=== PATIENT | female | born 1950 | race Caucasian/White ===

== ENCOUNTER 2019-07-24 22:46 | Emergency (ER) | payer MEDICARE ==
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
[2019-07-25 01:31] VITALS: BP 124/81
== END 2019-07-25 00:55 | disposition home or self-care (01) ==
LOC: ED 22:46
DX: S63.502A Unspecified sprain of left wrist, initial encounter (principal); W18.09XA Striking against other object with subsequent fall, initial encounter; Y92.009 Unspecified place in unspecified non-institutional (private) residence as the place of occurrence of the external cause; M85.832 Other specified disorders of bone density and structure, left forearm; M25.512 Pain in left shoulder; I10 Essential (primary) hypertension; J44.9 Chronic obstructive pulmonary disease, unspecified; Z86.73 Personal history of transient ischemic attack (TIA), and cerebral infarction without residual deficits; Z88.8 Allergy status to other drugs, medicaments and biological substances
CPT/HCPCS: 99282

== ENCOUNTER 2021-10-24 06:52 | Observation (INO) ==
[~2021-10-24 06:52] MED LIST: Buffered Lidocaine 1% SYRIN 1 ml INTRADERM ONE; Lactated Ringers 1000 ml BAG 1,000 ML IV SCH
[2021-10-24] MEDS ORDERED: Lidocaine 2.5%/Prilocain 2.5% 5 GM TUBE ONE (07:28)
[2021-10-24] MEDS ORDERED: ceFAZolin 2 GM PREMIX 2 GM/50 ML BAG ONE (10:56)
[2021-10-24] MEDS ORDERED: Heparin 5000 UNITS/ML 1 mL VIAL ONE (10:56)
[2021-10-24] MEDS ORDERED: Acetaminophen IV 1 GM/100ML 100 ML IV ONE ×2 (11:51→19:05)
[2021-10-24] MEDS ORDERED: Midazolam 2 mg/2 ml VIAL 1 mg/ml 2 ml VIAL (2 mg) ONE (11:51)
[2021-10-24] MEDS ORDERED: Dexamethasone IV 4 MG/ML VIAL 1 ml VIAL ONE ×2 (11:51→18:34)
[2021-10-24] MEDS ORDERED: Lidocaine 2% PF 5 ML VIAL ONE (11:51)
[2021-10-24] MEDS ORDERED: Ondansetron 4 mg VIAL 2 MG/ML 2 ml VIAL ONE ×2 (11:51→18:34)
[2021-10-24] MEDS ORDERED: fentaNYL 100 mcg/2 ml 50 MCG/ML VIAL ONE ×2 (11:51→17:31)
[2021-10-24] MEDS ORDERED: Rocuronium 50 mg VIAL 10 mg/ml 5 ml VIAL (50 mg) ONE (11:52)
[2021-10-24] MEDS ORDERED: Bupivacaine 0.5% 50 ML MDV VIAL ONE (12:17)
[2021-10-24] MEDS ORDERED: ISOSULFAN BLUE 1% 5 ML VIAL 10 MG/ML SUBCUT ONE (12:19)
[2021-10-24] MEDS ORDERED: EPHEDrine (Pressors) 50 MG/ML VIAL ONE (13:18)
[2021-10-24] MEDS ORDERED: HYDROmorphone 1 MG/1 ML SYRINGE ONE ×2 (14:31→18:55)
[2021-10-24] MEDS ORDERED: HYDROcodone/ACETAMIN 5/325 mg TAB PO PRN (16:02)
[2021-10-24] MEDS ORDERED: Morphine 2 MG/ML SYRINGE IV PRN (16:05)
[2021-10-24] MEDS ORDERED: Benzocaine/Menthol LOZ PO PRN (16:07)
[2021-10-24] MEDS ORDERED: Naloxone 0.4 mg VIAL 0.4 mg/ml 1 ml VIAL IV PRN (17:18)
[2021-10-24] MEDS ORDERED: DiMENhydriNATE IV 50 mg/ml 1 ml VIAL IV PUSH PRN (17:18)
[2021-10-24] MEDS ORDERED: diPHENhydraMINE IV 50 MG/ML 1 ml VIAL (BENADRYL) IV PRN (17:18)
[2021-10-24] MEDS ORDERED: HYDROmorphone 1 MG/1 ML SYRINGE IV PRN (17:18)
[2021-10-24] MEDS: fentaNYL 100 mcg/2 ml 50 MCG/ML VIAL IV PRN ×3 (17:32→18:12)
[2021-10-24] MEDS ORDERED: DiMENhydriNATE IV 50 mg/ml 1 ml VIAL ONE (18:12)
[2021-10-24] MEDS: ceFAZolin 2 GM in NS PREMIX 2 GM/100 ML BAG IVPB SCH (20:59)
[2021-10-24] MEDS: Heparin 5000 UNITS/ML 1 mL VIAL SUBCUT SCH (21:01)
[2021-10-24] MEDS ORDERED: Calcium Carb (TUMS) 500 mg CHEW TAB PO ONE (22:10)
[2021-10-25] MEDS: ceFAZolin 2 GM in NS PREMIX 2 GM/100 ML BAG IVPB SCH (05:44)
[2021-10-25] MEDS: Heparin 5000 UNITS/ML 1 mL VIAL SUBCUT SCH (05:44)
[2021-10-25 11:48] VITALS: BP 102/58
== END 2021-10-25 12:15 | disposition home or self-care (01) ==
LOC: SSU 06:52 → OR 06:52
PROVIDERS: ADMIT Student in an Organized Health Care Education/Training Program; ATTEND Student in an Organized Health Care Education/Training Program

== ENCOUNTER 2022-03-14 12:35 | Observation (INO) ==
[2022-03-14 12:56] LABS: ABS Eosinophils 0.1 10^3/ul (0-0.6); ABS Lymphocytes 0.5 10^3/ul (1.0-4.8); ABS Monocytes 0.5 10^3/ul (0-0.8); ABS Neutrophils 2.7 10^3/ul (1.5-7.7); Eosinophil % 2.9 %; Hematocrit 41 % (35-47); Hemoglobin 13.9 g/dL (12.0-16.0); Lymphocyte % 13.1 %; Mean Corpuscular HGB Conc 34 g/dL (31-36); Mean Corpuscular Hemoglobin 31 pg (27-31); Mean Corpuscular Volume 91 fL (80-97); Mean Platelet Volume 7.2 fL (7.4-10.4); Platelet Count 243 10^3/uL (150-450); Red Blood Count 4.56 10^6 /uL (3.70-4.87); Red Cell Distribution Width 14 % (10-15); White Blood Count 3.8 10^3/uL (3.5-10.8)
[2022-03-14 13:08] LABS: INR 1.2 (0.86-1.15)
[2022-03-14 13:44] LABS: Albumin 3.6 g/dL (3.2-5.2); Albumin/Globulin Ratio 1.2 (1-3); Globulin 2.9 g/dL (2-4); Potassium 3.2 mmol/L (3.5-5.0); Total Bilirubin 0.7 mg/dL (0.2-1.0); Total Protein 6.5 g/dL (6.4-8.9); eGFR CKD-EPI 29.9 (>60)
[2022-03-14] MEDS ORDERED: Potassium Chlor 20 meq TAB.ER PO ONE (14:24)
[2022-03-14] MEDS ORDERED: Lactated Ringers 1000 ml BAG 1,000 ML IV ONE (14:24)
[2022-03-14 14:35] LABS: High Sensitivity Troponin 1 Hr 11 pg/mL (<15)
[2022-03-14] MEDS ORDERED: cefTRIAXone 1 gm/50 mL D5W 1 GM/50 ML BAG IV ONE (14:39)
[2022-03-14 16:08] LABS: Magnesium 1.3 mg/dL (1.9-2.7)
[2022-03-14 16:39] LABS: Urine Appearance Clear; Urine Bilirubin Negative (Negative); Urine Blood Negative (Negative); Urine Color Straw; Urine Glucose Negative (Negative); Urine Ketones Negative (Negative); Urine Nitrite Negative (Negative); Urine Protein Negative (Negative); Urine Specific Gravity 1.015 (1.002-1.030); Urine Urobilinogen Negative (Negative)
[2022-03-14] MEDS ORDERED: Albuterol HFA INHALER 8 gm MDI INH PRN (17:23)
[2022-03-14] MEDS: Magnesium Sulfate 2 gm BAG 2 GM/50 ML BAG IVPB SCH ×2 (17:23→22:22)
[2022-03-14] MEDS: Heparin 5000 UNITS/ML 1 mL VIAL SUBCUT SCH (22:16)
[2022-03-15] MEDS: DOXYcycline 100 MG in NS 0.9% 250 ml 250 ML IVPB SCH ×3 (00:05→20:56)
[2022-03-15 06:06] LABS: ABS Eosinophils 0.2 10^3/ul (0-0.6); ABS Lymphocytes 0.5 10^3/ul (1.0-4.8); ABS Monocytes 0.4 10^3/ul (0-0.8); ABS Neutrophils 1.1 10^3/ul (1.5-7.7); Eosinophil % 9.4 %; Hematocrit 39 % (35-47); Lymphocyte % 22.7 %; Mean Corpuscular HGB Conc 34 g/dL (31-36); Mean Corpuscular Hemoglobin 31 pg (27-31); Mean Corpuscular Volume 91 fL (80-97); Mean Platelet Volume 7.4 fL (7.4-10.4); Platelet Count 208 10^3/uL (150-450); Red Blood Count 4.21 10^6 /uL (3.70-4.87); Red Cell Distribution Width 14 % (10-15); White Blood Count 2.3 10^3/uL (3.5-10.8)
[2022-03-15] MEDS: Heparin 5000 UNITS/ML 1 mL VIAL SUBCUT SCH ×3 (06:08→20:55)
[2022-03-15 06:43] LABS: Calcium 8.8 mg/dL (8.6-10.3); HDL Cholesterol 28.5 mg/dL; Magnesium 2.9 mg/dL (1.9-2.7); Potassium 3.7 mmol/L (3.5-5.0); eGFR CKD-EPI 29.5 (>60)
[2022-03-15 06:57] LABS: TSH Ultra Thyroid Stim Horm 1.69 mcIU/mL (0.34-5.60)
[2022-03-15] MEDS ORDERED: NS 0.9% 1000 ml BAG 1,000 ML IV SCH (09:00)
[2022-03-15 13:50] LABS: Urine Creatinine Concentration 29.73 mg/dL
[2022-03-15] MEDS ORDERED: cefTRIAXone 1 GM Q24H (Pharmacy Admix) IVPB SCH (14:30)
[2022-03-15] MEDS ORDERED: cefTRIAXone 1 gm/50 mL D5W 1 GM/50 ML BAG IV SCH (14:30)
[2022-03-16 05:44] LABS: ABS Eosinophils 0.2 10^3/ul (0-0.6); ABS Lymphocytes 0.5 10^3/ul (1.0-4.8); ABS Monocytes 0.3 10^3/ul (0-0.8); ABS Neutrophils 1.4 10^3/ul (1.5-7.7); Eosinophil % 8.1 %; Hematocrit 35 % (35-47); Hemoglobin 11.8 g/dL (12.0-16.0); Lymphocyte % 18.6 %; Mean Corpuscular HGB Conc 34 g/dL (31-36); Mean Corpuscular Hemoglobin 31 pg (27-31); Mean Corpuscular Volume 91 fL (80-97); Mean Platelet Volume 7.3 fL (7.4-10.4); Platelet Count 205 10^3/uL (150-450); Red Blood Count 3.84 10^6 /uL (3.70-4.87); Red Cell Distribution Width 14 % (10-15); White Blood Count 2.5 10^3/uL (3.5-10.8)
[2022-03-16] MEDS: Heparin 5000 UNITS/ML 1 mL VIAL SUBCUT SCH (06:27)
[2022-03-16 06:40] LABS: Calcium 8.2 mg/dL (8.6-10.3); Magnesium 1.9 mg/dL (1.9-2.7); Potassium 3.2 mmol/L (3.5-5.0); eGFR CKD-EPI 40.8 (>60)
[2022-03-16] MEDS ORDERED: Potassium Chlor 20 meq TAB.ER PO ONE (08:19)
[2022-03-16] MEDS ORDERED: NS 0.9% 1000 ml BAG 1,000 ML IV SCH (08:30)
[2022-03-16] MEDS: DOXYcycline 100 MG in NS 0.9% 250 ml 250 ML IVPB SCH (08:54)
[2022-03-16 11:30] VITALS: BP 134/81
== END 2022-03-16 12:30 | disposition home or self-care (01) ==
LOC: EDHOLD 12:35 → ED 12:35 → SUATTDRO 16:30 → MEDTELE 21:45
PROVIDERS: ADMIT Hospitalist; ATTEND Internal Medicine